=== PATIENT | female | born 1985 | race Caucasian/White ===

== ENCOUNTER 2018-09-28 19:19 | Emergency (ER) | payer SELFPAY ==
[2018-09-28 19:51] VITALS: BP 129/83
[2018-09-28] MEDS ORDERED: PENICILLIN V POTASSIUM 500 MG TABLET PO ONE ×2 (21:02→21:10)
[2018-09-28] MEDS ORDERED: IBUPROFEN 800 MG TABLET PO ONE (21:02)
--- NOTE | 2018-10-01 07:53 | ER Document Report ---
Entered by ALCIRA DONATO SCRIBE 09/28/18 [id number] Acting as scribe for:CAIT GARCIA MD ED Oral Problem - General Chief Complaint: Toothache Stated Complaint: MOUTH/TOOTH PAIN Time Seen by Provider: 09/28/18 20:48 Mode of Arrival: Ambulatory Information source: Patient Notes: Patient is a 33-year-old female presented to the emergency department complaining of tooth pain onset yesterday. Patient states her pain minimally subsided yesterday evening however, she woke up this morning to right lower jaw swelling and pain. Patient's LMP was approximately 2 weeks ago. TRAVEL OUTSIDE OF THE [place] IN LAST 30 DAYS: No - Related Data Allergies/Adverse Reactions: No Known Allergies Allergy (Unverified 09/28/18 19:21) Past Medical History - General Information source: Patient - Social History Smoking Status: Current Every Day Smoker Cigarette use (# per day): Yes - 1 PPD Chew tobacco use (# tins/day): No Frequency of alcohol use: Occasional Drug Abuse: None Family History: Reviewed & Not Pertinent Patient has suicidal ideation: No Patient has homicidal ideation: No Past Surgical History: Reports: Other - [place] Review of Systems - Review of Systems Constitutional: No symptoms reported EENT: See HPI Cardiovascular: No symptoms reported Respiratory: No symptoms reported Gastrointestinal: No symptoms reported Genitourinary: No symptoms reported Female Genitourinary: No symptoms reported Musculoskeletal: See HPI Skin: No symptoms reported Hematologic/Lymphatic: No symptoms reported Neurological/Psychological: No symptoms reported -: Yes All other systems reviewed and negative Physical Exam - Vital signs Vitals: Temp Pulse Resp BP Pulse Ox 98.3 F 63 16 129/83 H 99 09/28/18 19:50 09/28/18 19:50 09/28/18 19:50 09/28/18 19:50 09/28/18 19:50 - Notes Notes: GENERAL: Alert, interacts well. No acute distress. HEAD: Normocephalic, atraumatic. EYES: Pupils equal, round, and reactive to light. Extraocular movements intact. ENT: Oral mucosa moist, tongue midline. Poor dentition. Right lower 2nd premolar is severely decayed and broken, tender to palpation, minimal surrounding gum swelling. Right lower 1st premolar is also severely decayed, half broken. Right lower 2nd and 3rd molars are absent. Left lower premolars and molars are absent. Right lower jaw is swollen. No signs of an abscess. NECK: Full range of motion. Supple. Trachea midline. LUNGS: Clear to auscultation bilaterally, no wheezes, rales, or rhonchi. No respiratory distress. HEART: Regular rate and rhythm. No murmurs, gallops, or rubs. ABDOMEN: Soft, non-tender. Non-distended. Bowel sounds present in all 4 quadrants. EXTREMITIES: Moves all 4 extremities spontaneously. No edema, radial and dorsalis pedis pulses 2/4 bilaterally. No cyanosis. NEUROLOGICAL: Alert and oriented x3. Normal speech. PSYCH: Normal affect, normal mood. SKIN: Warm, dry, normal turgor. No rashes or lesions noted. Course - Vital Signs Vital signs: Temp Pulse Resp BP Pulse Ox 98.3 F 63 16 129/83 H 99 09/28/18 19:50 09/28/18 19:50 09/28/18 19:50 09/28/18 19:50 09/28/18 19:50 Discharge - Discharge Clinical Impression: Dental decay Condition: Stable Disposition: HOME, SELF-CARE Instructions: Dentist Additional Instructions: Toothache Your pain is due to dental decay. The tooth must be repaired in order for you to feel better. You will, therefore, be referred to a dentist. Severe swelling or drainage around a tooth usually means a deep dental abscess. This also requires evaluation and treatment by the dentist, but antibiotics may be prescribed while awaiting dental treatment. You should be rechecked immediately if you develop major swelling of the fa ce, increasing pain, a lump in the jaw or gums, headache, or fever. Take medications as prescribed. Take ibuprofen 800 mg every 8 hours for pain and inflammation. Follow-up with a dentist in the next week. RETURN TO THE EMERGENCY ROOM IF ANY NEW OR WORSENING SYMPTOMS. Prescriptions: Penicillin V Potassium [Penicillin Vk 500 mg Tablet] 500 mg PO QID #28 tablet I personally performed the services described in the documentation, reviewed and edited the documentation which was dictated to the scribe in my presence, and it accurately records my words and actions.
== END 2018-09-28 21:21 | disposition home or self-care (01) ==
LOC: ER 19:19
DX: K02.9 Dental caries, unspecified (principal); K08.89 Other specified disorders of teeth and supporting structures; R22.0 Localized swelling, mass and lump, head; F17.210 Nicotine dependence, cigarettes, uncomplicated
CPT/HCPCS: 99282